=== PATIENT | female | born 1985 | race Caucasian/White ===

== ENCOUNTER 2018-11-07 08:22 | Inpatient (IN) | payer SELFPAY ==
[~2018-11-07] VITALS: Ht 165.1 cm; Wt 90.7 kg
[2018-11-07 08:22] VITALS: BP 146/93
--- NOTE | 2018-11-07 08:22 | NUR ---
PATIENT BIB EMS TO ER BED 1.
[2018-11-07] MEDS ORDERED: HALOPERIDOL IM 5 MG/ML VIAL IM ONE ×2 (08:30→08:55)
--- NOTE | 2018-11-07 08:48 | NUR ---
PT BIB EMS. PT WAS FOUND WANDERING THE STREETS MUMBLING AND YELLING EXCESSIVELY IN [place]. PT APPEARS DISHEVELED; NO OPEN WOUNDS OR SORES APPARENT ON EXPOSED AREAS. PT IS NOT DRESSED APPROPRIATELY FOR WEATHER CONDITIONS. PT STATES NAME IS "DAVID CABALLEROINGUEZ." UNABLE TO OBTAIN DATE OF . PT COOPERATIVE WITH NURSES BUT STILL YELLING EXCESSIVELY. VSS; PATIENT POSITIONED FOR COMFORT; HOB ELEVATED; BEDRAILS UP X2; BED DOWN. ER MD MADE AWARE OF PT STATUS.
[2018-11-07] MEDS ORDERED: LORazepam 2 MG/ML VIAL IM ONE (08:55)
--- NOTE | 2018-11-07 09:20 | NUR ---
Physician order given to place HARD type restraints to WRIST AND ANKLES to prevent PT FROM HARMING HERSELF AND OTHERS. Resraints placed with quick-release ties to bed frame. Pt under observation.
--- NOTE | 2018-11-07 09:50 | NUR ---
RESTRAINTS REASSESSED. SKIN INTACT, WARM, DRY. PERIPHERAL PULSES PRESENT +2. CAPILLARY REFILL ON BIG TOED AND INDEX FINGERS <3 SEC. WILL CONTINUE TO MONITOR.
[2018-11-07 09:54] LABS: APPEARANCE,URINE CLEAR (CLEAR); BARBITURATE, URINE NEG. ng/ml (NEG <=200); BENZODIAZEPINE, URINE NEG. ng/mL (NEG <=200); BILIRUBIN,URINE NEGATIVE (NEGATIVE); BLOOD, URINE NEGATIVE (NEGATIVE); CANNABINOID, URINE NEG. ng/mL (NEG <=50); COCAINE, URINE NEG. ng/mL (NEG <=300); COLOR,URINE YELLOW (YELLOW); LEUKOCYTE ESTERASE ,URINE 1+ (NEGATIVE); NITRITE, URINE NEGATIVE (NEGATIVE); OPIATE, URINE NEG. ng/mL (NEG <=2000); PHENCYCLIDINE SCREEN,URINE NEG. ng/mL (NEG <=25); UGLUCOSE 1+ (NEGATIVE)
[2018-11-07 10:00] LABS: BASOPHILS # (AUTO) 0.1 K/uL (0.00-0.22); BASOPHILS % (AUTO) 0.3 % (0.0-2.0); HEMATOCRIT 37.3 % (36-48); HEMOGLOBIN 12.2 g/dL (12.0-16.0); LYMPHOCYTES # (AUTO) 0.6 K/uL (2.5-16.5); LYMPHOCYTES % (AUTO) 3.5 % (20.5-51.1); MEAN CORPUSCULAR HEMOGLOBIN 28 pg (27-31); MEAN CORPUSCULAR HGB CONC 33 g/dL (33-37); MEAN CORPUSCULAR VOLUME 86.4 fL (80-94); MONOCYTES # (AUTO) 0.5 K/uL (0.8-1.0); MONOCYTES % (AUTO) 2.7 % (1.7-9.3); NEUTROPHILS # (AUTO) 16.3 K/uL (1.8-7.7); NEUTROPHILS % (AUTO) 93.5 % (42.2-75.2); PLATELET COUNT (AUTO) 339 K/uL (140-450); RED BLOOD CELL COUNT(AUTO) 4.31 MIL/uL (4.20-5.40); RED CELL DISTRIBUTION WIDTH 13.1 % (11.6-13.7); WHITE BLOOD COUNT (AUTO) 17.4 K/uL (4.8-10.8)
[2018-11-07 10:04] LABS: RBC,URINE 0-5 (RARE) /HPF (0-5)
[2018-11-07 10:05] LABS: HYALINE CASTS, URINE 0-10 /LPF (None Seen)
[2018-11-07 10:11] LABS: ANION GAP 16.9 (8-16); ASPARTATE AMINOTRANSFERASE 17 U/L (15-37); CARBON DIOXIDE 23.9 mmol/L (21-32); CHLORIDE 103 mmol/L (98-107); CREATININE 1.1 mg/dL (0.6-1.3); GFR ARICAN-AMERICAN 67 mL/min (>90); GLUCOSE 167 mg/dL (74-106); SODIUM SERUM 141 mmol/L (136-145); TOTAL BILIRUBIN 0.4 mg/dL (0.0-1.0); UREA NITROGEN, BLOOD 6 mg/dL (7-18)
[2018-11-07 10:13] LABS: ACETAMINOPHEN < 0.5 ug/ml (10-30); POTASSIUM 2.8 mmol/L (3.5-5.1); SALICYLATE < 2.8 mg/dL (2.8-20.0)
[2018-11-07] MEDS ORDERED: KCL 20 MEQ/WATER INJ PREMIX 100 ML IV ONE (10:20)
--- NOTE | 2018-11-07 10:20 | NUR ---
RESTRAINTS REASSESSED. SKIN INTACT, WARM, DRY. PERIPHERAL PULSES PRESENT +2. CAPILLARY REFILL ON BIG TOED AND INDEX FINGERS <3 SEC. WILL CONTINUE TO MONITOR.
[2018-11-07] MEDS: NACL 0.9% 1,000 ML IV SCH ×2 (10:22→20:22)
[2018-11-07] MEDS ORDERED: HYDROcodone/APAP 7.5/325 MG 1 TAB PO PRN (10:25)
[2018-11-07] MEDS ORDERED: ONDANSETRON 4 MG/2 ML VIAL IVP PRN (10:25)
[2018-11-07] MEDS ORDERED: NACL 0.9% 1,000 ML IV ONE (10:25)
[2018-11-07] MEDS ORDERED: ACETAMINOPHEN 325 MG TAB PO PRN (10:25)
[2018-11-07] MEDS ORDERED: cefTRIAXone 1,000 MG VIAL ONE (10:35)
--- NOTE | 2018-11-07 10:47 | NUR ---
PT TO ER BED 3
--- NOTE | 2018-11-07 10:50 | NUR ---
RESTRAINTS REASSESSED. SKIN INTACT, WARM, DRY. PERIPHERAL PULSES PRESENT +2. CAPILLARY REFILL ON BIG TOED AND INDEX FINGERS <3 SEC. WILL CONTINUE TO MONITOR.
--- NOTE | 2018-11-07 10:53 | NUR ---
SPOKE WITH [facility] CHARGE NURSE REGARDING BED ASSIGNMENT, WILL NEED SITTER ON FLOOR.
--- NOTE | 2018-11-07 11:20 | NUR ---
RESTRAINTS REASSESSED. SKIN INTACT, WARM, DRY. PERIPHERAL PULSES PRESENT +2. CAPILLARY REFILL ON BIG TOED AND INDEX FINGERS <3 SEC. WILL CONTINUE TO MONITOR.
[2018-11-07 11:37] LABS: PROTHROMBIN TIME 10.2 secs (10.8-13.4)
[2018-11-07 11:48] LABS: FREE T4 (FREE THYROXINE) 0.89 ng/dL (0.76-1.46); MAGNESIUM 1.8 mg/dL (1.8-2.4); PHOSPHORUS 1.6 mg/dL (2.5-4.9); THYROID STIMULATING HORMONE 1.12 uIU/mL (0.34-3.74)
--- NOTE | 2018-11-07 11:50 | NUR ---
RESTRAINT ORDER CANCELED
--- NOTE | 2018-11-07 11:52 | NUR ---
PT TAKEN TO CT VIA RADORE.
--- NOTE | 2018-11-07 12:00 | NUR ---
RECEIVED REPORT FROM ER NURSE AT BEDSIDE. PT IS ADMITTED WITH DX OF SEPTICEMIA, UTI. ACUTE PSYCHOTIC EPISODE. PT IS 56 Y/O F, NIUEAN SPEAKING ONLY. PER ER NURSE HX UNOBTAINABLE PT IS ALOC. PT HAS IV SITE ON RT HAND 20 G, AND ON LFT HAND 18 G. CURRENTLY INFUSING K-RIDER FOR LOW POTASSIUM AT 50 ML/HR. IVF INFUSING AT 100 ML/HR. NO AGITATION NOTED IN PT. PER ER NURSE , PT COMPLAINING STATES TO SEE SNAKES ON THE FLOOR. INFORMED HER THAT SHE IS AT HOSPITAL AND THERE ARE NO SNAKES AROUND. PT IS CALM AT THIS TIME. COLLECTED MRSA NARES SWAB. VS RECORDED T 98.5, HR 98, O2 100%, BP 103/59, RR 2O. NO SIGN OF DISTRESS NOTED AT THIS TIME. WILL CONTINUE TO MONITOR PT.
[2018-11-07] MEDS ORDERED: HALOPERIDOL IM 5 MG/ML VIAL IM PRN (12:10)
[2018-11-07] MEDS ORDERED: LORazepam 2 MG/ML VIAL IVP PRN (12:10)
--- NOTE | 2018-11-07 12:15 | NUR ---
Patient will be admitted to care of DR. BAKER. Admited to TELE. Will go to room 109B. Belongings list completed. Report to DEEPAK.
--- NOTE | 2018-11-07 14:00 | NUR ---
PT WITH [employer] FOR THE ECHOCARDIOGRAM. LYING COMFORTABLY ON HER BED. NO SIGN OF DISTRESS NOTED. WILL CONTINUE TO MONITOR PT.
[2018-11-07] MEDS ORDERED: POTASSIUM CHLORIDE 40 MEQ, LIDOCAINE 1% 25 MG in NACL 0.9% 250 ML IV SCH (15:00)
--- NOTE | 2018-11-07 15:00 | NUR ---
CHECKED ON PT SLEEPING AT THIS TIME. PT AWOKE TO VOICE AND WENT BACK TO SLEEP AGAIN. APPEARS DROWSY AND CONFUSED. ALL SAFETY MEASURE IN PLACE. WILL CONTINUE TO MONITOR PT.
[2018-11-07 16:00] VITALS: BP 108/68
--- NOTE | 2018-11-07 17:00 | NUR ---
CHECKED ON PT. LYING COMFORTABLY ON HER BED. NO SIGN OF DISTRESSED NOTED. PT APPEARS CALM AND COOPERATIVE.ALL SAFETY MEASURE IN PLACE. WILL CONTINUE TO MONITOR PT.
--- NOTE | 2018-11-07 18:35 | NUR ---
CHECKED ON PT. ASSISTED PT TO RESTROOM . PT ATE FOOD. NO BEHAVIORAL ISSUES IDENTIFIED. NO SIGN OF DISTRESS NOTED. WILL CONTINUE TO MONITOR PT.
--- NOTE | 2018-11-07 19:29 | NUR ---
ENDORSED REPORT TO PM NURSE AT BEDSIDE. PT IN STABLE CONDITION.
--- NOTE | 2018-11-07 19:30 | NUR ---
RECEIVED FROM AM RN IN BED SITTING UP. REFUSED TO VERBALIZE AT THIS TIME. PT. JUST STARING AT ME. CALL LIGHT WITH IN REACH. TELEMETRY MONITORING. LOW ST IN MONITOR 101 AT THIS TIME. BED ALARM ON . IVF SITES TO RH #20 AND LH#18 INTACT AND WITH GOOD BLOOD RETURN.
[2018-11-07 20:00] VITALS: BP 109/71
[2018-11-07] MEDS: DOCUSATE SODIUM 100 MG GELCAP PO SCH (20:46)
[2018-11-07] MEDS: SODIUM PHOS / POTASSIUM PHOS 1 PKT PDR PO SCH (20:46)
--- NOTE | 2018-11-07 22:45 | NUR ---
PT. RESTLESS AND AT THIS TIME WANTING TO GO OUT OF THE HOSPITAL. ENCOURAGED TO GO SLEEP AND RELAX. GETTING OUT OF BED AND GOING TO RESTROOM A LOT AND LOOKING AT THE DOOR WAY.
--- NOTE | 2018-11-07 22:58 | NUR ---
MEDICATED WITH ATIVAN 1 MG IVP REQUESTED BY PT. ABLE TO VERBALIZE IN SIMPLE MALTESE . STATED SHE CAN NOT SLEEP AND THAT SHE IS RESTLESS. PROVIDED WITH COLD WATER REQUESTED. ENCOURAGED TO SLEEP AND PT. REQUESTED TO TURN OFF ALL LIGHTS TOO. WILL MONITOR FREQUENTLY. ROOM SITUATED IN FRONT OF NURSING UNIT FOR BETTER VISIBILITY. ON TELEMETRY MONITORING.
[2018-11-08] VITALS: BP 102/60
--- NOTE | 2018-11-08 00:38 | NUR ---
SLEEPING AT THIS TIME. NO RESTLESSNESS . TELEMETRY MONITORING.
--- NOTE | 2018-11-08 02:36 | NUR ---
PT. PULLED OUT IVF ACCIDENTALLY WHILE SLEEPING. TIP INTACT. COVERED WITH BAND AID SITE. REFUSED TO HAVE NEW IVF INSERTION AT THIS TIME. "NO" MANANA PER PT. CALLED RESIDENT MD LEONE. INFORMED HER OF PT. REFUSING TO HAVE NEW IVF LINE INSERTED. AWARE AND SHE SAID " WE WILL DO IT IN A.M. WHEN WE GIVE IV ABT.
[2018-11-08 04:28] VITALS: BP 106/68
--- NOTE | 2018-11-08 04:36 | NUR ---
PT. AWAKE AT THIS TIME. WANTING TO GO SHOWER AT THIS TIME. ENCOURAGED TO GO BACK TO BED RT STILL EARLY. PT. AM PERSONAL HYGIENE PROVIDED BY CNAS.
--- NOTE | 2018-11-08 06:13 | NUR ---
TRIED TO INSERT NEW IVF LINE. "KYLEE DAVILA" REFUSED AND WAGGED HER HANDS DEFENSIVELY IN AIR. INFORMED CHARGE NURSE. AWARE. SEEN BY CHARGE NURSE TOO. REFUSED TO LISTEN TO CHARGE NURSE.
[2018-11-08] MEDS: NACL 0.9% 1,000 ML IV SCH ×2 (06:22→18:52)
--- NOTE | 2018-11-08 07:15 | NUR ---
ENDORSED TO THE NEXT RN FOR CONTINUITY OF CARE. ABLE TO VERBALIZE NEEDS WELL IN [place]. NOTED SHE CAN UNDERSTAND IRANIAN AND SPEAKS A LITTLE OF IRANIAN TOO. NO SOB. PT. WALKS WELL. PT. PROVIDED WITH SWEATER RT COMPLAINED EARLIER SHE WAS COLD. PT. STILL REFUSING TO HAVE NEW IVF LINE INSERTED.
--- NOTE | 2018-11-08 07:15 | NUR ---
RECEIVED PATIENT ASLEEP IN BED. PATIENT IS AROUSABLE. NO S/S OF DISTRESS. WILL CONTINUE TO MONITOR
[2018-11-08 07:29] LABS: BASOPHILS % (AUTO) 0.5 % (0.0-2.0); EOSINOPHILS # (AUTO) 0.5 K/uL (0-0.4); EOSINOPHILS % (AUTO) 6.5 % (0.0-4.0); HEMATOCRIT 36.8 % (36-48); HEMOGLOBIN 12.1 g/dL (12.0-16.0); LYMPHOCYTES # (AUTO) 1.4 K/uL (2.5-16.5); LYMPHOCYTES % (AUTO) 17.3 % (20.5-51.1); MEAN CORPUSCULAR HEMOGLOBIN 29 pg (27-31); MEAN CORPUSCULAR HGB CONC 33 g/dL (33-37); MEAN CORPUSCULAR VOLUME 88.2 fL (80-94); MONOCYTES # (AUTO) 0.5 K/uL (0.8-1.0); MONOCYTES % (AUTO) 5.7 % (1.7-9.3); NEUTROPHILS # (AUTO) 5.8 K/uL (1.8-7.7); PLATELET COUNT (AUTO) 297 K/uL (140-450); RED BLOOD CELL COUNT(AUTO) 4.18 MIL/uL (4.20-5.40); RED CELL DISTRIBUTION WIDTH 13.1 % (11.6-13.7); WHITE BLOOD COUNT (AUTO) 8.2 K/uL (4.8-10.8)
[2018-11-08 07:45] LABS: ANION GAP 13.1 (8-16); CARBON DIOXIDE 26.6 mmol/L (21-32); CREATININE 0.7 mg/dL (0.6-1.3); POTASSIUM 3.7 mmol/L (3.5-5.1)
[2018-11-08 07:48] LABS: CHOL/HDL RATIO 2.6 (1-4.5); MAGNESIUM 1.9 mg/dL (1.8-2.4); PHOSPHORUS 2.8 mg/dL (2.5-4.9)
[2018-11-08 08:00] VITALS: BP 103/66
--- NOTE | 2018-11-08 08:28 | NUR ---
PATIENT HAS BEEN SCREENED AND CATEGORIZED HIGH NUTRITION RISK. PATIENT WILL BE SEEN WITHIN 1-2 DAYS OF ADMISSION. 11/07/18-11/08/[address] Addendum: 11/08/18 at [address] PATIENT HAS BEEN SCREENED AND CATEGORIZED MODERATE NUTRITION RISK. PATIENT WILL BE SEEN WITHIN 1-2 DAYS OF ADMISSION. 11/09/18-11/11/[address]
[2018-11-08] MEDS: LACTOBACILLUS RHAMNOSUS GG 1 EACH CAP PO SCH (09:47)
[2018-11-08] MEDS: DOCUSATE SODIUM 100 MG GELCAP PO SCH ×2 (09:47→20:10)
[2018-11-08] MEDS: SODIUM PHOS / POTASSIUM PHOS 1 PKT PDR PO SCH ×2 (09:47→20:11)
--- NOTE | 2018-11-08 09:47 | NUR ---
ADMINISTERED DUE MEDICATIONS. PATIENT PT IS COMPLIANT. PT TOLERATED WELL. NEW IV LINE INSERTED. RIGHT HAND 22G
[2018-11-08 12:00] VITALS: BP 107/70
--- NOTE | 2018-11-08 15:12 | NUR ---
PT QUIETLY RESTING IN BED. NO S/S OF DISTRESS NOTED
[2018-11-08 15:45] VITALS: BP 121/64
--- NOTE | 2018-11-08 18:33 | NUR ---
Bus Driver [employer] Notes: I attempted to meet with Patient to discuss and gather additional Information. Patient was not cooperative and did not wanting to answer any questions. She wanted to be sleeping during the meeting. Patient stated " I dont want to talk now i just want to sleep"
--- NOTE | 2018-11-08 19:25 | NUR ---
PATIENT REPORT GIVEN AT BEDSIDE. PATIENT ENDORSED IN STABLE CONDITION
--- NOTE | 2018-11-08 19:26 | NUR ---
RECEIVED BEDSIDE REPORT FROM DAY SHIFT RN. PT ON RA. NO S/S OF DISTRESS. PT TAMAZIGHT SPEAKING. A&OX3. IV ON R HAND 22G NS INFUSING AT 100ML/H. SKIN INTACT PER NURSE. PT IS AMBULATORY. PLAN OF CARE DISCUSSED WITH PT. PT VERBALIZED UNDERSTANDING. CALL LIGHT WITHIN REACH.
--- NOTE | 2018-11-08 20:10 | NUR ---
DUE MEDICATIONS GIVEN PT TOLERATED WELL. ALL NEEDS MET AT THIS TIME. CALL LIGHT WITHIN REACH.
--- NOTE | 2018-11-08 22:41 | NUR ---
PT RESTING COMFORTABLY IN BED. CALL LIGHT WITHIN REACH.
[2018-11-08 23:42] VITALS: BP 107/63
--- NOTE | 2018-11-09 01:08 | NUR ---
PT SLEEPING. NO S/S OF DISTRESS. SAFETY MEASURES ARE IN PLACE. CALL LIGHT WITHIN REACH.
[2018-11-09] MEDS: NACL 0.9% 1,000 ML IV SCH ×3 (02:22→20:58)
--- NOTE | 2018-11-09 03:30 | NUR ---
PT TRANSFERRED TO ROOM 111A. PT TOLERATED WELL. PT NOW RESTING COMFORTABLY IN BED. NO S/S OF DISTRESS. CALL LIGHT WITHIN REACH.
[2018-11-09 07:13] LABS: HEMATOCRIT 37.8 % (36-48); HEMOGLOBIN 12.4 g/dL (12.0-16.0); MEAN CORPUSCULAR HEMOGLOBIN 29 pg (27-31); MEAN CORPUSCULAR HGB CONC 33 g/dL (33-37); MEAN CORPUSCULAR VOLUME 88.3 fL (80-94); PLATELET COUNT (AUTO) 320 K/uL (140-450); RED BLOOD CELL COUNT(AUTO) 4.28 MIL/uL (4.20-5.40); RED CELL DISTRIBUTION WIDTH 13.1 % (11.6-13.7); WHITE BLOOD COUNT (AUTO) 7.8 K/uL (4.8-10.8)
--- NOTE | 2018-11-09 07:15 | NUR ---
ENDORSED PT TO DAY SHIFT RN. PT IS IN STABLE CONDITION.
--- NOTE | 2018-11-09 07:24 | NUR ---
RECEIVED BEDSIDE REPORT FROM SUPERINTENDENT CONTAINER TERMINAL RN. PT ON RA. NO S/S OF DISTRESS. PT [place] ISLANDER SPEAKING. A&OX2. IV ON R HAND 22G NS INFUSING AT 100ML/H. SKIN INTACT. PT IS AMBULATORY. PLAN OF CARE DISCUSSED WITH PT. PT VERBALIZED UNDERSTANDING. CALL LIGHT WITHIN REACH. BED IN LOW POSITION. WILL CONTINUE TO ROUND FREQUENTLY ON PT
[2018-11-09 07:32] LABS: ANION GAP 6.5 (8-16); CARBON DIOXIDE 28.2 mmol/L (21-32); CREATININE 0.7 mg/dL (0.6-1.3); POTASSIUM 3.7 mmol/L (3.5-5.1)
[2018-11-09 07:52] LABS: BASOPHILS % (MANUAL) 0 % (0-2); EOSINOPHILS % (MANUAL) 22 % (0-4); LYMPHOCYTES % (MANUAL) 35 % (20-46); MONOCYTES % (MANUAL) 7 % (5-12)
[2018-11-09 08:00] VITALS: BP 94/60
--- NOTE | 2018-11-09 09:34 | NUR ---
ADMINISTERED MORNING MEDS TO PT. PT TOLERATED WELL. PT IS ASKING FOR MORE FOOD. A PUDDING CUP, JUICE, AND CRACKERS WERE PROVIDED. WILL CONTINUE TO ROUND FREQUENTLY ON PT.
[2018-11-09] MEDS: LACTOBACILLUS RHAMNOSUS GG 1 EACH CAP PO SCH (09:43)
[2018-11-09] MEDS: DOCUSATE SODIUM 100 MG GELCAP PO SCH ×2 (09:43→20:36)
[2018-11-09] MEDS: SODIUM PHOS / POTASSIUM PHOS 1 PKT PDR PO SCH ×2 (09:43→20:36)
--- NOTE | 2018-11-09 13:26 | NUR ---
PT RESTING IN BED WATCHING TV. ALL NEEDS MET AT THIS TIME. WILL CONTINUE TO ROUND FREQUENTLY. BED IN LOW POSITION, CALL LIGHT WITHIN REACH
--- NOTE | 2018-11-09 15:26 | NUR ---
PT RESTING IN BED WATCHING TV. NO COMPLAINTS OF PAIN OR DISTRESS AT THIS TIME. WILL CONTINUE TO MONITOR FOR MED EFFECTIVENESS.
[2018-11-09 16:00] VITALS: BP 132/77
--- NOTE | 2018-11-09 17:29 | NUR ---
PT TAKING A SHOWER AT THIS TIME. HAIR SAMPLE MATCHER STANDING BY FOR ANY PT NEEDS.
--- NOTE | 2018-11-09 17:51 | NUR ---
PT REFUSING IV FLUIDS AT THIS TIME. SHE STATES THAT THE IV LINE GETS TANGLED UNDER HER OVERS AND DOES NOT ALLOW HER TO SLEEP. PT IV PATENT AND INTACT AND SALINE LOCKED FOR NOW. NOTIFIED AND STATED NO PROBLEM.
--- NOTE | 2018-11-09 19:31 | NUR ---
ENDORSED PT TO PHARMACY AIDE FOR CONTINUITY OF CARE. PT IN STABLE CONDITION AT THIS TIME.
--- NOTE | 2018-11-09 19:32 | NUR ---
RECEIVED BEDSIDE REPORT FROM DAY SHIFT RN. PT ON RA. NO S/S OF DISTRESS. PT TELUGU SPEAKING. A&OX3. IV ON R HAND 22G CURRENTLY SALINE LOCK. DR CANNON. SKIN INTACT PER NURSE. PT IS AMBULATORY. PLAN OF CARE DISCUSSED WITH PT. PT VERBALIZED UNDERSTANDING. CALL LIGHT WITHIN REACH.
--- NOTE | 2018-11-09 20:36 | NUR ---
DUE MEDICATIONS GIVEN. PT TOLERATED WELL. ALL NEEDS MET AT THIS TIME. CALL LIGHT WITHIN REACH.
--- NOTE | 2018-11-10 | NUR ---
VS ARE WITHIN NORMAL LIMITS.ALL NEEDS MET AT THIS TIME. CALL LIGHT WITHIN REACH.
[2018-11-10 00:05] VITALS: BP 99/50
--- NOTE | 2018-11-10 02:30 | NUR ---
PT IS SLEEPING COMFORTABLY IN BED. NO S/S OF DISTRESS. SAFETY MEASURES ARE IN PLACE. CALL LIGHT WITHIN REACH.
--- NOTE | 2018-11-10 04:32 | NUR ---
PT IS SLEEPING COMFORTABLY IN BED. NO S/S OF DISTRESS. SAFETY MEASURES ARE IN PLACE. CALL LIGHT WITHIN REACH.
--- NOTE | 2018-11-10 05:55 | NUR ---
PT REFUSED BLOOD DRAW. DR CANNON.
--- NOTE | 2018-11-10 07:29 | NUR ---
ENDORSED PT TO DAY SHIFT RN. PT IS IN STABLE CONDITION.
--- NOTE | 2018-11-10 07:30 | NUR ---
Received bedside report from pm nurse Bethany. Pt asleep in bed, respirations even & nonlabored, FLACC 0. Call light within reach.
[2018-11-10 08:00] VITALS: BP 99/51
[2018-11-10] MEDS: NACL 0.9% 1,000 ML IV SCH (08:22)
[2018-11-10] MEDS ORDERED: SULF-59 PO (08:42)
[2018-11-10] MEDS ORDERED: LACT10CA PO (08:42)
[2018-11-10] MEDS: SODIUM PHOS / POTASSIUM PHOS 1 PKT PDR PO SCH (09:20)
[2018-11-10] MEDS: DOCUSATE SODIUM 100 MG GELCAP PO SCH (09:21)
[2018-11-10] MEDS: LACTOBACILLUS RHAMNOSUS GG 1 EACH CAP PO SCH (09:21)
--- NOTE | 2018-11-10 09:27 | NUR ---
Pt refused IV Rocephin; explained benefits of antibiotic tx. Pt states that she will be discharged today & agrees to take po antibiotics when discharged. Confirmed discharge plan today with Dr Hathaway.
--- NOTE | 2018-11-10 13:00 | NUR ---
Verbal & written discharge instructions provided to pt, utilizing telephone station repairer [phone] #[id number]. Pt verbalized understanding & agree with discharge meds & MD f/u. R hand IV discontinued, no signs of complications.
--- NOTE | 2018-11-10 13:20 | NUR ---
Pt discharged at this time. Name band removed. All belongings with pt. Pt has not made arrangements for homeless longterm at this time, states she will meet her homeless friend & that she will be ok. Bus pass provided per pt request. Pt left via front lobby with steady gait, no signs of distress.
== END 2018-11-10 13:20 | disposition home or self-care (01) | DRG 871 ==
LOC: MED 08:22 → MTU 10:33 → EDBD 10:33 → MTU 11-08 12:52
PROVIDERS: ADMIT General Practice; ATTEND General Practice
DX: A41.9 Sepsis, unspecified organism (principal); G92 Toxic encephalopathy; N17.0 Acute kidney failure with tubular necrosis; N39.0 Urinary tract infection, site not specified; T43.621A Poisoning by amphetamines, accidental (unintentional), initial encounter; E87.6 Hypokalemia; Z60.2 Problems related to living alone; E83.39 Other disorders of phosphorus metabolism; F15.10 Other stimulant abuse, uncomplicated; E66.9 Obesity, unspecified; E83.51 Hypocalcemia; S93.402A Sprain of unspecified ligament of left ankle, initial encounter; X58.XXXA Exposure to other specified factors, initial encounter; Z68.33 Body mass index [BMI] 33.0-33.9, adult; Y93.89 Activity, other specified; Y92.89 Other specified places as the place of occurrence of the external cause; Y99.8 Other external cause status
CPT/HCPCS: 36415; 36600; 70450; 71045; 73610; 80048; 80053; 80305; 81001; 82140; 82150; 82803; 83036; 83605; 83690; 83735; 83880; 84100; 84439; 84443; 84484; 85025; 85610; 85730; 87040; 87081; 87086; 93005; 96365; 96368; 96372; 99285; C1758; G0480; G0482; J0696; J1630; J2001; J2060; J3480; J7030; J7060; Q0092